=== PATIENT | male | born 1975 | race Caucasian/White ===

== ENCOUNTER → 2020-10-15 | Outpatient (CLI) | payer BC ==
[~2020-10-15] MED LIST: NFPRILOC40 PO
--- NOTE | 2020-10-15 14:24 | Diagnostic Imaging Report ---
INDICATION: Chronic back pain. COMPARISON: None FINDINGS: Frontal and lateral views of the lumbar spine were obtained. Alignment and vertebral heights are maintained. There is no fracture or destructive process. Limited views of the abdomen demonstrate nonobstructive bowel gas pattern. IMPRESSION: 1. No acute fracture or dislocation of the lumbar spine. Dictated by: Dictated on workstation # [id number]
== END ==
LOC: RAD 13:19
PROVIDERS: ATTEND Nurse Practitioner Family
DX: M54.5 Low back pain (principal)
CPT/HCPCS: 72100

== ENCOUNTER 2021-12-06 19:02 | Emergency (ER) | payer BC ==
[~2021-12-06] VITALS: Ht 167.7 cm; Wt 87.3 kg
--- NOTE | 2021-12-06 19:48 | Diagnostic Imaging Report ---
CLINICAL INDICATION: Patient complains of cough and drainage on right side, pain. EXAM: Portable chest x-ray upright view. COMPARISON: None. FINDINGS: Lungs/pleura: There is mild atelectasis in both lung bases. There is no lung infiltrate. There is no pneumothorax. There is no pleural effusion. Mediastinum: Unremarkable. Pulmonary vasculature: Unremarkable. Heart: Unremarkable. Bones/extrathoracic soft tissue: Unremarkable. IMPRESSION: There is no radiographic evidence of acute cardiopulmonary process. Dictated by: Dictated on workstation # [id number]
--- NOTE | 2021-12-06 19:53 | ED General ---
General Chief Complaint: COVID19 Suspect/Confirmed Stated Complaint: RIGHT SIDE PAIN COUGH/DRAINAGE Nursing Triage Note: PT ARRIVAL TO ER WITH COMPLAINT OF COUGH, DRAINAGE, RIGHT SIDE PAIN. PTS SPOUSE AND SON ARE COVID+. PT STATES THAT HE LAID DOWN TODAY AND WOKE UP WITH THE RIGHT SIDED PAIN. PAIN IS INTERMITTENT. Source of Information: Patient Exam Limitations: No Limitations History of Present Illness Date Seen by Provider: Dec 06, 2021 Time Seen by Provider: 19:52 Initial Comments To ER with right flank pain intermittent and severe in nature for a couple of h ours. No history of this. and son at home have COVID. He denies any cough or sore throat. Timing/Duration: 4-6 Hours Severity: Moderate Associated Systoms: Denies Symptoms Allergies and Home Medications Allergies Coded Allergies: No Known Drug Allergies (Unverified , 02/20/13) Patient Home Medication List Home Medication List Reviewed: Yes Hydrocodone/Acetaminophen (Hydrocodone-Acetamin 5-325 mg) 5 Mg-325 Mg Tablet, 1 TAB PO Q4H PRN for PAIN-MODERATE (5-7) Prescribed by: ARABELLA JONAS on 12/06/212040 Ketorolac Tromethamine (Ketorolac Tromethamine) 10 Mg Tablet, 10 MG PO TID Prescribed by: ARABELLA JONAS on 12/06/212040 Omeprazole (Prilosec) 40 Mg Capsule.dr, 40 MG PO DAILY, (Reported) Entered as Reported by: REEMA ARANGO on 02/20/131909 Ondansetron (Ondansetron Odt) 8 Mg Tab.rapdis, 8 MG PO Q6H PRN for NAUSEA/VOMITING Prescribed by: ARABELLA JONAS on 12/06/212040 Sulfamethoxazole/Trimethoprim (Bactrim Ds Tablet) 1 Each Tablet, 1 EACH PO BID Prescribed by: ARABELLA JONAS on 12/06/212040 Tamsulosin HCl (Flomax) 0.4 Mg Cap, 0.4 MG PO DAILY Prescribed by: ARABELLA JONAS on 12/06/212040 Review of Systems Review of Systems Constitutional: see HPI EENTM: see HPI Respiratory: no symptoms reported Cardiovascular: no symptoms reported Genitourinary: see HPI Musculoskeletal: no symptoms reported Skin: no symptoms reported Psychiatric/Neurological: No Symptoms Reported Hematologic/Lymphatic: No Symptoms Reported Immunological/Allergic: no symptoms reported Past Laohezo-Ezqedd-Uuxivk Hx Patient Social History Tobacco Use?: No Use of E-Cig and/or Vaping dev: No Substance use?: No Alcohol Use?: No Pt feels they are or have been: No Immunizations Up To Date Influenza Vaccine Up-to-Date: No; Not Current Past Medical History Reproductive Disorders: No Dialysis Gastroesophageal Reflux Family Medical History No Pertinent Family Hx Physical Exam Vital Signs Vital Signs - First Documented 12/06/21 19:20 Temp 36.9 Pulse 54 Resp 16 B/P (MAP) 109/93 (98) Pulse Ox 100 O2 Delivery Room Air Capillary Refill : Less Than 3 Seconds Height, Weight, BMI Height: '" Weight: 180lbs. oz. 81.234131hm; 31.00 BMI Method: General Appearance: No Apparent Distress, WD/WN Eyes: Bilateral Eye Normal Inspection, Bilateral Eye PERRL, Bilateral Eye EOMI HEENT: PERRL/EOMI, TMs Normal Neck: Full Range of Motion, Normal Inspection Respiratory: No Accessory Muscle Use, No Respiratory Distress Cardiovascular: Regular Rate, Rhythm, Normal Peripheral Pulses Gastrointestinal: Normal Bowel Sounds, Non Tender, Soft Extremity: Normal Capillary Refill, Normal Inspection Neurologic/Psychiatric: Alert, Oriented x3 Skin: Normal Color, Warm/Dry Progress/Results/Core Measures Suspected Sepsis SIRS Temperature: Pulse: 54 Respiratory Rate: 16 Laboratory Tests 12/06/21 20:00: White Blood Count 7.6 Blood Pressure 109 /93 Mean: 98 Laboratory Tests 12/06/21 20:00: Creatinine 1.14, Platelet Count 208 Results/Orders Lab Results Laboratory Tests Test 12/06/21 18:17 12/06/21 20:00 12/06/21 21:42 Range/Units SARS-CoV-2 RNA (RT-PCR) Not Detected Not Detecte White Blood Count 7.6 4.3-11.0 10^3/uL Red Blood Count 4.91 4.30-5.52 10^6/uL Hemoglobin 14.6 13.3-17.7 g/dL Hematocrit 43 40-54 % Mean Corpuscular Volume 88 80-99 fL Mean Corpuscular Hemoglobin 30 25-34 pg Mean Corpuscular Hemoglobin Concent 34 32-36 g/dL Red Cell Distribution Width 11.8 10.0-14.5 % Platelet Count 208 130-400 10^3/uL Mean Platelet Volume 10.6 9.0-12.2 fL Immature Granulocyte % (Auto) 0 % Neutrophils (%) (Auto) 60 42-75 % Lymphocytes (%) (Auto) 18 12-44 % Monocytes (%) (Auto) 17 H 0-12 % Eosinophils (%) (Auto) 4 0-10 % Basophils (%) (Auto) 1 0-10 % Neutrophils # (Auto) 4.6 1.8-7.8 10^3/uL Lymphocytes # (Auto) 1.4 1.0-4.0 10^3/uL Monocytes # (Auto) 1.3 H 0.0-1.0 10^3/uL Eosinophils # (Auto) 0.3 0.0-0.3 10^3/uL Basophils # (Auto) 0.1 0.0-0.1 10^3/uL Immature Granulocyte # (Auto) 0.0 0.0-0.1 10^3/uL Sodium Level 138 135-145 MMOL/L Potassium Level 4.2 3.6-5.0 MMOL/L Chloride Level 105 98-107 MMOL/L Carbon Dioxide Level 20 L 21-32 MMOL/L Anion Gap 13 5-14 MMOL/L Blood Urea Nitrogen 15 7-18 MG/DL Creatinine 1.14 0.60-1.30 MG/DL Estimat Glomerular Filtration Rate 81 BUN/Creatinine Ratio 13 Glucose Level 118 H 70-105 MG/DL Calcium Level 9.3 8.5-10.1 MG/DL My Orders Orders - ARABELLA JONAS APRN Covid 19 Inhouse Test (12/06/21 19:12) Chest 1 View, Ap/Pa Only (12/06/21 19:12) Ua Culture If Indicated (12/06/21 19:58) Cbc With Automated Diff (12/06/21 19:58) Basic Metabolic Panel (12/06/21 19:58) Ed Iv/Invasive Line Start (12/06/21 19:58) Ketorolac Injection (Toradol Injection) (12/06/21 20:00) Lactated Ringers (Lr 1000 Ml Iv Solution (12/06/21 20:00) Ct Abd/Pelvis Wo(Kidney Stone) (12/06/21 19:58) Abdomen/Kub 1view (12/06/21 20:46) Rx-Hydrocodone/Apap 5-325 Mg (Rx-Vicodin (12/06/21 21:00) Medications Given in ED Current Medications Medications Dose Ordered Sig/Bg Route Start Time Stop Time Status Last Admin Dose Admin Acetaminophen/ Hydrocodone Bitart 1 ea Q4H PRN PO 12/06/21 21:00 12/06/21 21:14 1 EA Ketorolac Tromethamine 15 mg ONCE ONCE IVP 12/06/21 20:00 12/06/21 20:01 DC 12/06/21 20:05 15 MG Vital Signs/I&O 12/06/21 12/06/21 19:20 21:06 Temp 36.9 Pulse 54 73 Resp 16 18 B/P (MAP) 109/93 (98) 112/73 Pulse Ox 100 99 O2 Delivery Room Air Room Air Capillary Refill : Less Than 3 Seconds Blood Pressure Mean: 98 Departure Impression Primary Impression: Kidney stones Disposition: HOME, SELF-CARE Condition: Stable Departure-Patient Inst. Decision time for Depature: 19:53 Referrals: NO,LOCAL PHYSICIAN (PCP) Primary Care Physician JULY MEJÍA MD Patient Instructions: Kidney Stone, Adult ED, Kidney Stones (DC) Add. Discharge Instructions: 1. Return to ER for any concerns. Follow-up with your doctor next week. If you have not passed this stone by Thursday, call Dr. Mejía from urology as you may need some intervention from him. Return to ER for any fevers or chills or intolerable pain or nausea or vomiting. Medication as directed. Scripts Sulfamethoxazole/Trimethoprim (Bactrim Ds Tablet) 1 Each Tablet 1 EACH PO BID, #10 TAB Prov: ARABELLA JONAS APRN 12/06/21 Tamsulosin HCl (Flomax) 0.4 Mg Cap 0.4 MG PO DAILY, #14 CAP Prov: ARABELLA JONAS APRN 12/06/21 Ondansetron (Ondansetron Odt) 8 Mg Tab.rapdis 8 MG PO Q6H PRN for NAUSEA/VOMITING, #10 TAB Prov: ARABELLA JONAS APRN 12/06/21 Hydrocodone/Acetaminophen (Hydrocodone-Acetamin 5-325 mg) 5 Mg-325 Mg Tablet 1 TAB PO Q4H PRN for PAIN-MODERATE (5-7), #14 TAB Prov: ARABELLA JONAS APRN 12/06/21 Ketorolac Tromethamine (Ketorolac Tromethamine) 10 Mg Tablet 10 MG PO TID, #9 TAB Prov: ARABELLA JONAS APRN 12/06/21 ARABELLA JONAS [employer] Dec 06, 2021 19:53
[2021-12-06] MEDS ORDERED: LACTATED RINGERS 1,000 ML IV SCH (20:00)
[2021-12-06] MEDS ORDERED: KETOROLAC 30 MG/ML VIAL IVP ONE (20:00)
[2021-12-06 20:14] LABS: BASOPHILS # (AUTO) 0.1 10^3/uL (0.0-0.1); BASOPHILS % (AUTO) 1 % (0-10); EOSINOPHILS # (AUTO) 0.3 10^3/uL (0.0-0.3); EOSINOPHILS % (AUTO) 4 % (0-10); HEMATOCRIT 43 % (40-54); HEMOGLOBIN 14.6 g/dL (13.3-17.7); LYMPHOCYTES # (AUTO) 1.4 10^3/uL (1.0-4.0); LYMPHOCYTES % (AUTO) 18 % (12-44); MEAN CORPUSCULAR HEMOGLOBIN 30 pg (25-34); MEAN CORPUSCULAR HGB CONC 34 g/dL (32-36); MEAN CORPUSCULAR VOLUME 88 fL (80-99); MEAN PLATELET VOLUME 10.6 fL (9.0-12.2); MONOCYTES # (AUTO) 1.3 10^3/uL (0.0-1.0); MONOCYTES % (AUTO) 17 % (0-12); NEUTROPHILS # (AUTO) 4.6 10^3/uL (1.8-7.8); NEUTROPHILS % (AUTO) 60 % (42-75); PLATELET COUNT 208 10^3/uL (130-400); WHITE BLOOD COUNT 7.6 10^3/uL (4.3-11.0)
[2021-12-06 20:18] LABS: CALCIUM 9.3 MG/DL (8.5-10.1); CREATININE SERUM 1.14 MG/DL (0.60-1.30); POTASSIUM 4.2 MMOL/L (3.6-5.0)
[2021-12-06] MEDS ORDERED: ACHD5005 PO (20:41)
[2021-12-06] MEDS ORDERED: SULF1TAB38 PO (20:41)
[2021-12-06] MEDS ORDERED: KETO10TA PO (20:41)
[2021-12-06] MEDS ORDERED: ONDA8TAB13 PO (20:41)
[2021-12-06] MEDS ORDERED: TMSL.4C PO (20:41)
[2021-12-06 21:06] VITALS: BP 112/73
--- NOTE | 2021-12-06 21:23 | Diagnostic Imaging Report ---
Clinical Indication: Patient with right ureteral stone on CT. Exam: KUB x-ray. Comparison: CT scan of the abdomen and pelvis without contrast dated 12/06/2021. Findings and impression: 1: The calcification within the proximal right ureter UPJ seen on the prior CT scan is not visualized on this x-ray. It is possible that it is obscured by bowel gas. 2: There is a nonobstructed bowel gas pattern. There is no evidence of abdominal free air. 3: There are degenerative spurs involving the lumbar spine. Dictated by: Dictated on workstation # [id number]
[2021-12-06 21:54] LABS: BILIRUBIN,URINE NEGATIVE (NEGATIVE); CLARITY,URINE CLEAR; COLOR,URINE YELLOW; GLUCOSE, URINE (UA) NEGATIVE (NEGATIVE); KETONES,URINE NEGATIVE (NEGATIVE); LEUKOCYTE ESTERASE ,URINE NEGATIVE (NEGATIVE); NITRITE,URINE NEGATIVE (NEGATIVE); PH,URINE 5.5 (5-9); PROTEIN,URINE 1+ (NEGATIVE)
--- NOTE | 2021-12-06 22:05 | Diagnostic Imaging Report ---
Clinical indication: Patient with right-sided flank pain with cough and congestion. Exam: CT exam of the abdomen and pelvis is performed without IV or oral contrast using stone protocol. Coronal and sagittal reformatted images were created. Auto Exposure Controls were utilized during the CT exam to meet ALARA standards for radiation dose reduction. Comparisons: None. Findings: Visualized lung bases: Unremarkable. Liver: Unremarkable as visualized. Gallbladder: Unremarkable. Pancreas: Unremarkable as visualized. Spleen: Unremarkable as visualized. Adrenal glands: Unremarkable. Kidneys/ ureters: There is a 4 mm stone within the proximal right ureter at the right UPJ region. There is mild right hydronephrosis and mild periureteral and perinephric fat stranding. There is a punctate nonobstructive stone involving the left kidney. Both kidneys are otherwise unremarkable. Aorta: Unremarkable as visualized. Intraabdominal/ retroperitoneal contents: Unremarkable. Intestines: Unremarkable as visualized. Appendix: Unremarkable. Bladder: Unremarkable as visualized. Pelvic organs: Unremarkable as visualized. Extra abdominal/ pelvis regions: Unremarkable. Abdominal wall: Unremarkable. Bones: Unremarkable. Impression: 1: There is a 4 mm mildly obstructing stone within the proximal right ureter at the UPJ region with mild right hydronephrosis and mild periureteral and perinephric fat stranding. 2: There is a nonobstructive stone involving the left kidney. Dictated by: Dictated on workstation # [id number]
[2021-12-06 22:08] LABS: RBC,URINE >100 /HPF
[2021-12-06 22:09] LABS: BACTERIA,URINE TRACE /HPF; CALCIUM OXALATE CRYSTALS,UR RARE /LPF
== END 2021-12-06 22:04 | disposition home or self-care (01) ==
LOC: EDUNIT# 19:02 → ER 19:06
DX: N20.0 Calculus of kidney (principal); Z20.822 Contact with and (suspected) exposure to COVID-19; Z28.310 Unvaccinated for COVID-19
CPT/HCPCS: 36415; 71045; 74018; 74176; 80048; 81000; 85025; 87636

== ENCOUNTER → 2021-12-23 | Outpatient (CLI) | payer BC ==
[~2021-12-23] MED LIST changes: +ACHD5005 PO; +KETO10TA PO; +ONDA8TAB13 PO; +SULF1TAB38 PO; +TMSL.4C PO
--- NOTE | 2021-12-23 17:20 | Diagnostic Imaging Report ---
INDICATION: Nephrolithiasis. Comparison is made with prior exam of 11/12/2021 FINDINGS: The bowel gas pattern is nonspecific. No definitive radiopaque stones appreciated. The osseous structures are unremarkable. IMPRESSION: Nonspecific bowel gas pattern. No definitive radiopaque stones. Dictated by: Dictated on workstation # [id number]
== END ==
LOC: RAD 16:08
PROVIDERS: ATTEND Nurse Practitioner Family
DX: N20.0 Calculus of kidney (principal)
CPT/HCPCS: 74018

== ENCOUNTER → 2021-12-26 | Outpatient (CLI) | payer BC ==
--- NOTE | 2021-12-26 13:06 | Diagnostic Imaging Report ---
PROCEDURE: CT urinary tract, rule out kidney stone. TECHNIQUE: Multiple contiguous axial images were obtained through the abdomen and pelvis without the use of intravenous contrast. Auto Exposure Controls were utilized during the CT exam to meet ALARA standards for radiation dose reduction. INDICATION: Follow-up kidney stones. Comparison is made with prior CT from 12/06/2021. FINDINGS: The lung bases are clear. The liver and gallbladder are unremarkable. There is no biliary duct dilatation. The pancreas, spleen and adrenal glands are stable. The previously noted proximal right ureteric calculus has progressed down the right ureter is now located in the mid right ureter. No significant hydroureteronephrosis is present, however. Tiny nonobstructing calculi left kidney is again noted. No left ureteral calculi are seen. There is no bladder calculi detected. Aorta is nonaneurysmal. Bowel loops are normal caliber. There is no obstruction. There is moderate stool in the rectum. No free fluid or fluid collection. Prostate is unremarkable. IMPRESSION: Previously noted right ureteric calculus has progressed down the right ureter and is now located in the mid right ureter. No significant obstruction or hydroureteronephrosis is present, however. Dictated by: Dictated on workstation # [id number]
== END ==
LOC: RAD 11:48
PROVIDERS: ATTEND Family Medicine
DX: N20.2 Calculus of kidney with calculus of ureter (principal)
CPT/HCPCS: 74176